=== PATIENT | female | born 1940 | race Caucasian/White ===

== ENCOUNTER 2019-12-25 09:10 | Outpatient (CLI) | payer MEDICARE, BC ==
--- NOTE | 2019-12-25 12:14 | BD ---
BONE DENSITOMETRY USING DEXA: HISTORY: Postmenopausal screening for osteoporosis. FINDINGS: Lumbar Spine: BMD (g/cm2) L1 0.970 T-Score: -0.2 Z-Score: 2.2 L2 1.062 T-Score: 0.3 Z-Score: 2.9 L3 1.181 T-Score: 0.9 Z-Score: 2.6 L4 1.260 T-Score: 1.8 Z-Score: 4.6 L1-L4 1.126 T-Score: 0.7 Z-Score: 3.4 Femoral Neck: 0.674 T-Score: -1.6 Z-Score: 0.7 Total Femur: 0.876 T-Score: -0.5 Z-Score: 1.5 The 10-year fracture risk for a major osteoporotic fracture is 17% and for a hip fracture is 4.2%. Impression: Osteopenia. POS: MZA
== END 2019-12-25 09:11 | disposition home or self-care (01) ==
LOC: BICMAMMO 09:10
PROVIDERS: ATTEND Family Medicine
DX: Z13.820 Encounter for screening for osteoporosis (principal); M85.859 Other specified disorders of bone density and structure, unspecified thigh; Z78.0 Asymptomatic menopausal state
CPT/HCPCS: 77080

== ENCOUNTER 2020-04-27 12:49 | Emergency (ER) | payer MEDICARE, BC, OTHER ==
[2020-04-28 12:49] LABS: SARS-CoV-2 MS2 Positive; SARS-CoV-2 N Gene Negative; SARS-CoV-2 S Gene Negative; SARS-CoV-2 by NAA Not Detected (NotDetected); SARS-CoV-2 orf1ab Negative
== END 2020-04-27 13:27 | disposition home or self-care (01) ==
LOC: ERS 12:49
DX: Z20.828 Contact with and (suspected) exposure to other viral communicable diseases (principal); M79.7 Fibromyalgia; I10 Essential (primary) hypertension
CPT/HCPCS: 87635; 99284; U0003

== ENCOUNTER 2020-06-20 10:34 | Outpatient (CLI) | payer MEDICARE, BC ==
--- NOTE | 2020-06-20 11:33 | ULT ---
EXAM: US Abdominal CLINICAL HISTORY: Epigastric pain and nausea.. COMPARISON: None. FINDINGS: Pancreas: The head and proximal body the pancreas have a heterogeneous echotexture. The remainder th e pancreas is obscured by bowel gas. Pancreatic duct is dilated measuring 0.3 cm. IVC: Visualized IVC has a normal caliber. Aorta: Visualized aorta has a normal caliber. Liver:Normal hepatic parenchymal echotexture. No hepatic masses or intrahepatic biliary dilatation. C ontour of the hepatic margins maintained. Right hepatic lobe measures 15.5 cm Gallbladder: Sludge within the gallbladder. Gallbladder wall is not thickened. No pericholecystic flu id. Gallbladder is distended. Mohr's sign:Negative CBD: 1 cm common bile duct diameter Portal vein: Patent. Appropriate directional flow. Right kidney: Normal cortical echotexture. No hydronephrosis Right kidney measuring 10.4 cm in kristen th. Left kidney: Normal cortical echotexture. No hydronephrosis. Left kidney measuring 10.3 cm in length Spleen: Normal echotexture, measuring 10.8 cm IMPRESSION: 1. Distended gallbladder with sludge. No sonographic evidence of cholecystitis.
== END 2020-06-20 10:35 | disposition home or self-care (01) ==
LOC: BICULT 10:34
PROVIDERS: ATTEND Internal Medicine
DX: R10.13 Epigastric pain (principal); R11.0 Nausea; R68.81 Early satiety; K82.8 Other specified diseases of gallbladder
CPT/HCPCS: 93975

== ENCOUNTER 2020-08-16 07:29 | Outpatient (CLI) | payer MEDICARE, BC ==
--- NOTE | 2020-08-16 10:39 | PET ---
PET CT: HISTORY: 80-year-old female with pancreatic cancer. Exam requested for initial staging. COMPARISON: None. CORRELATION: MRI of abdomen dated 06/28/2020. TECHNIQUE: PET scanning with CT attenuation correction was performed from the base of the brain thro ugh the proximal thighs following the intravenous administration of 10 mCi [id number] in the right antec ubital fossa. FINDINGS: There is hypermetabolic activity in the region of the mass in the uncinate process of the head of the pancreas with a SUV of 4.4. No latia hypermetabolism is seen in the neck, chest, abdomen, or pelvis. No hypermetabolic lung nodul es, liver, adrenal, or skeletal lesions are identified. There is physiologic activity in the GI and tracts, and visualized portions of the brain. There is physiologic activity in the musculature, most prominent in the gluteal regions bilaterally. CT scan used for attenuation correction demonstrates no evidence of pleural effusions or ascites. A b iliary stent has been placed since the MRI. IMPRESSION: Pancreatic malignancy without evidence of metastatic disease. POS: LETITIA
[2020-08-17 07:46] LABS: SARS-CoV-2 PCR by NAA Not Detected (NotDetected)
== END 2020-08-16 07:30 | disposition home or self-care (01) ==
LOC: PET 07:29
PROVIDERS: ATTEND Internal Medicine Hematology & Oncology
DX: C25.9 Malignant neoplasm of pancreas, unspecified (principal)
CPT/HCPCS: 78815; A9552; U0003; U0005; 87635

== ENCOUNTER 2020-08-17 22:25 | Emergency (ER) | payer MEDICARE, BC ==
[2020-08-17] MEDS ORDERED: Ibuprofen 800 MG TAB ONE (23:12)
[2020-08-17 23:34] LABS: #Lymphocytes 0.6 thou/uL (1.20-3.40); #Monocytes 0.5 thou/uL (0.11-0.59); #Neutrophils 8.2 thou/uL (1.40-6.50); %Basophils 0.2 % (0.0-1.0); %Eosinophils 0.1 % (0.0-10.0); %Lymphocytes 5.9 % (21.0-51.0); %Monocytes 5.7 % (0.0-10.0); %Neutrophils 88.1 % (42.0-75.0); Hemoglobin 12.6 g/dL (12.0-16.0); Mean Corpuscular Hemoglobin 30.3 pg (27.0-31.0); Mean Corpuscular Volume 86.5 fL (78.0-98.0); Mean Platelet Volume 8.4 fL (7.4-10.4); Platelet Count 153 thou/uL (130-400); RBC Distribution Width 12.7 % (11.5-14.5); Red Blood Cell (RBC) Count 4.15 mill/uL (4.20-5.40); White Blood Cell (WBC) Count 9.4 thou/uL (4.8-10.8)
[2020-08-17 23:55] LABS: ALT (SGPT) 15 U/L (8-55); AST (SGOT) 21 U/L (5-34); Albumin 3.4 g/dL (3.4-4.8); Alkaline Phosphatase 74 U/L (40-110); Anion Gap 13 mmol/L (10-20); BUN (Urea Nitrogen) 28 mg/dL (9.8-20.1); Bilirubin, Total 0.7 mg/dL (0.2-1.2); Calc. Creatinine Clearance 0 mL/min (70-130); Calcium 8.9 mg/dL (7.8-10.44); Carbon Dioxide 21 mmol/L (23-31); Chloride 108 mmol/L (98-107); Globulin 2.9 g/dL (2.4-3.5); Glucose 123 mg/dL (83-110); Potassium 3.3 mmol/L (3.5-5.1); Protein, Total 6.3 g/dL (5.8-8.1); Sodium 139 mmol/L (136-145)
[2020-08-18 00:28] LABS: Bacteria/HPF None Seen HPF (None Seen); Bilirubin Negative (Negative); Blood, Urine Negative (Negative); Clarity Clear (Clear); Glucose, Urine (Dipstick) Normal (Negative); Ketone, Urine 20 mg/dL (Negative); Leukocyte 250 Leu/uL (Negative); Nitrite Negative (Negative); Protein, Urine (Dipstick) 50 mg/dL (Neg-Trace); Specific Gravity, Urine 1.035 (1.002-1.036); Squamous Epithelial 0-3 HPF (0-3); Urobilinogen Normal mg/dL (Less than 2); WBC/HPF 21-50 HPF (0-3)
--- NOTE | 2020-08-18 07:48 | RAD ---
PORTABLE CHEST: HISTORY: Fever. COMPARISON: 08/20/2016. FINDINGS: Lung to appear clear. Heart is mildly prominent but stable. Calcified hilar nodes. Vascular ma rkings normal. IMPRESSION: No acute process. POS: AGW
--- NOTE | 2020-08-20 21:19 | EKG ---
Test Reason : Blood Pressure : / mmHG Vent. Rate : 131 BPM Atrial Rate : 131 BPM P-R Int : 120 ms QRS Dur : 140 ms QT Int : 360 ms P-R-T Axes : 000 255 -09 degrees QTc Int : 531 ms Sinus tachycardia Right bundle branch block Inferior infarct , age undetermined Anterolateral infarct , age undetermined Abnormal ECG Confirmed by OSCAR ELIZONDO ([id number]), rewrite editor GELY ENCARNACION ([id number]) on 08/20/2020 9:19:25 PM Referred By: Confirmed By:OSCAR ELIZONDO
== END 2020-08-18 01:07 | disposition home or self-care (01) ==
LOC: ERS 22:25
DX: N39.0 Urinary tract infection, site not specified (principal); L03.115 Cellulitis of right lower limb; I10 Essential (primary) hypertension; M79.7 Fibromyalgia; Z79.899 Other long term (current) drug therapy
CPT/HCPCS: 36415; 71045; 80053; 81003; 81015; 83605; 85025; 87040; 87804; 93005

== ENCOUNTER 2020-08-18 14:06 | Outpatient (CLI) | payer MEDICARE, BC ==
--- NOTE | 2020-08-18 18:21 | ULT ---
RIGHT LOWER EXTREMITY VENOUS DUPLEX STUDY: 08/18/20 Deep veins of the right lower extremity evaluated with ultrasound and Doppler with color Doppler and spectral analysis. INDICATIONS: Right lower extremity pain and edema. Deep veins of the right lower extremity demonstrate normal blood flow and compression. No evidence of DVT. IMPRESSION: Negative right lower extremity venous duplex exam. POS: AGW
== END 2020-08-18 14:07 | disposition home or self-care (01) ==
LOC: ULT 14:06
PROVIDERS: ATTEND Internal Medicine Hematology & Oncology
DX: M79.604 Pain in right leg (principal); R60.0 Localized edema

== ENCOUNTER 2020-08-24 09:49 | Day surgery (SDC) | payer MEDICARE, BC ==
[2020-08-17 10:57] VITALS: BMI 30.3
[~2020-08-24 09:49] MED LIST: Lidocaine 1% PF 5 ML VIAL ONE; PROPOFOL 200 MG/20 ML VIAL ONE
[2020-08-24] MEDS ORDERED: Bupivacaine 0.25% HCL 30 ML VIAL ONE (11:43)
[2020-08-24] MEDS ORDERED: XYLOCAINE 2%-EPI 1:100,000 20 ML VIAL ONE (11:43)
--- NOTE | 2020-08-24 13:33 | RAD ---
PORTABLE CHEST: INDICATION: MediPort placement. FINDINGS: MediPort catheter has been placed through the right jugular. The tip of the line overlies the SVC. Lung to appear clear. Mild cardiomegaly. Vascular markings upper normal. IMPRESSION: No acute process. POS: OFF
--- NOTE | 2020-08-24 15:26 | OP ---
DATE OF PROCEDURE: 08/24/2020 PREOPERATIVE DIAGNOSIS: Pancreatic cancer. POSTOPERATIVE DIAGNOSIS: Pancreatic cancer. PROCEDURE PERFORMED: Tunneled central line with subcutaneous port (MediPort, CT injectable low-profile). ANESTHESIA: General. ESTIMATED BLOOD LOSS: Minimal. COMPLICATIONS: None. FINDINGS: The tip of the catheter was at the atriocaval junction. DESCRIPTION OF PROCEDURE: The patient was taken to the operating room and laid supine on the operating room table. After general anesthetic was obtained, bilateral neck and chest was prepped and draped in a sterile fashion. Local anesthetic infiltrated over the right internal jugular vein. Internal jugular vein was cannulated under fluoro guidance. Wire was passed into the superior vena cava under fluoro guidance. A small rudolph was made at the wire entrance site. A separate 3-cm incision was made in the right upper chest. Subcutaneous pocket made below the lower incision using cautery, tubing for the MediPort tunneled from the inferior to superior incision and suture sheath was placed over the wire into the superior vena cava. The end of the wire and dilator removed. The end of the catheter sewed into the sheath. The sheath was peeled away. The tip of the catheter was at the atriocaval junction. MediPort tubing was cut to fit the MediPort with lower incision, connected to the MediPort. The MediPort was sewn to the chest wall in the subcutaneous pocket using Prolene. All ports flushed and drawn blood without difficulty. Tissue flushed with a saline solution. The wounds were closed using 3-0 Vicryl, 4-0 Monocryl, and Dermabond. The patient was sent to Recovery in stable condition. All instrument counts, needle counts, and lap counts were correct. Job ID: [id number]
== END 2020-08-24 14:15 | disposition home or self-care (01) ==
LOC: SDC 09:49
PROVIDERS: ATTEND Surgery
PROC: 0JH60WZ Insertion of Totally Implantable Vascular Access Device into Chest Subcutaneous Tissue and Fascia, Open Approach (ICD-10-PCS; principal; 2020-08-24)
PROC: 02HV33Z Insertion of Infusion Device into Superior Vena Cava, Percutaneous Approach (ICD-10-PCS; 2020-08-24)
DX: C25.9 Malignant neoplasm of pancreas, unspecified (principal); I10 Essential (primary) hypertension; I48.91 Unspecified atrial fibrillation; M79.7 Fibromyalgia; K52.9 Noninfective gastroenteritis and colitis, unspecified; R26.89 Other abnormalities of gait and mobility; Z91.81 History of falling; Z79.2 Long term (current) use of antibiotics; Z79.899 Other long term (current) drug therapy; Z88.6 Allergy status to analgesic agent
CPT/HCPCS: 36561; 71045; C1788; J0690; J1642; J2704; S0020